=== PATIENT | female | born 1985 | race Caucasian/White ===

== ENCOUNTER 2017-03-23 20:33 | Emergency (ER) | payer OTHER ==
[~2017-03-23] VITALS: Ht 177.8 cm; Wt 163.7 kg
[~2017-03-23 20:33] MED LIST: PREN1TAB81 PO
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
[2017-03-23] MEDS ORDERED: MORPHINE SULFATE INJ 2 MG/ML DISP.SYRIN IM ONE (22:00)
[2017-03-23] MEDS ORDERED: ONDANSETRON 4 MG TAB.RAPDIS PO ONE (22:00)
[2017-03-23] MEDS ORDERED: ONDANSETRON HCL/PF 4 MG/2 ML VIAL ONE (22:01)
[2017-03-23] MEDS ORDERED: MORPHINE SULFATE INJ 10 MG/ML DISP.SYRIN ONE (22:01)
[2017-03-23] MEDS ORDERED: ONDANSETRON 4 MG TAB.RAPDIS ONE (22:02)
--- NOTE | 2017-03-23 22:07 | NUR ---
MEDICATED PATIENT ORDERED.
[2017-03-23] MEDS ORDERED: ACETAMINOPHEN ES 500 MG TABLET PO ONE (22:30)
[2017-03-23] MEDS ORDERED: HYDROCODONE/APAP 5/325MG 1 EACH TABLET PO ONE (22:30)
[2017-03-23] MEDS ORDERED: HYDROCODONE/APAP 5/325MG 1 EACH TABLET ONE (22:32)
[2017-03-23 23:07] VITALS: BP 108/62
--- NOTE | 2017-03-23 23:10 | NUR ---
Patient discharged to friend for transport home in stable condition. Written and verbal after care instructions given. Patient verbalizes understanding of instruction. Pt ambulatory with a steady gait. VSS, NAD noted on DC.
== END 2017-03-23 23:12 | disposition home or self-care (01) ==
LOC: ER 20:34
DX: S20.219A Contusion of unspecified front wall of thorax, initial encounter (principal); Z88.1 Allergy status to other antibiotic agents; Z90.49 Acquired absence of other specified parts of digestive tract; Z90.89 Acquired absence of other organs; V43.52XA Car driver injured in collision with other type car in traffic accident, initial encounter; Y93.89 Activity, other specified; Y92.410 Unspecified street and highway as the place of occurrence of the external cause; Y99.8 Other external cause status
CPT/HCPCS: 71010; 93005; 96372; 99284; A4606; J2270; J2405; Q0162; Z7610